=== PATIENT | female | born 1975 | race Caucasian/White ===

== ENCOUNTER 2018-10-24 15:42 | Emergency (ER) | payer OTHER ==
[~2018-10-24] VITALS: Ht 157.5 cm; Wt 81.6 kg
--- NOTE | 2018-10-24 15:42 | NUR ---
EDWNI FROM HOME C/O LOWER BACK PAIN, PT HAS LUMBAR SURGERY YESTERDAY, TO ER BED 2, HOOKED TO MONITOR, CHANGED TO GOWN, PROVIDED W WARM BLANKET, DAUGHTER AT BEDSIDE, AWAITING MD URBAN
--- NOTE | 2018-10-24 16:13 | NUR ---
CALLED DR DECKER' OFFICE AT [phone] AND LEFT A MESSAGE FOR HIM TO CALL US BACK Addendum: 10/24/18 at 1703 by MAMI [phone] IS THE CORRECT OFFICE NUMBER
--- NOTE | 2018-10-24 16:15 | NUR ---
DR LOZOYA AT BEDSIDE FOR EVAL.
[2018-10-24] MEDS ORDERED: HYDROMORPHONE INJ 0.5 MG/0.5 ML SYRINGE IV ONE ×3 (16:30→21:30)
[2018-10-24] MEDS ORDERED: ONDANSETRON HCL/PF - ER 4 MG/2 ML VIAL IV ONE (16:30)
[2018-10-24] MEDS ORDERED: ONDANSETRON HCL/PF 4 MG/2 ML VIAL ONE (16:44)
[2018-10-24] MEDS ORDERED: HYDROMORPHONE 1 MG/1 ML DISP.SYRIN ONE ×3 (16:45→21:18)
[2018-10-24 16:47] LABS: BASOPHILS # (AUTO) 0.1 /CMM (0.0-0.2); BASOPHILS % (AUTO) 0.6 % (0.0-2.0); EOSINOPHILS % (AUTO) 2.2 % (0.0-6.0); HEMATOCRIT 34 % (33-45); HEMOGLOBIN 11.5 g/dL (11.5-14.8); LYMPHOCYTES % (AUTO) 15.7 % (20.0-44.0); MEAN CORPUSCULAR HGB CONC 34 g/dl (31.0-36.0); MEAN CORPUSCULAR VOLUME 94 fL (82-100); MONOCYTES # (AUTO) 1.1 /CMM (0.1-1.30); MONOCYTES % (AUTO) 8.3 % (2.0-12.0); NEUTROPHILS # (AUTO) 9.4 /CMM (1.8-8.9); NEUTROPHILS % (AUTO) 73.2 % (43.0-81.0); PLATELET COUNT (AUTO) 245 /CMM (150-450); RED BLOOD CELL COUNT(AUTO) 3.61 MIL/uL (4.0-5.2); WHITE BLOOD COUNT (AUTO) 12.8 K/uL (4.3-11.0)
[2018-10-24 16:52] LABS: CALCIUM, SERUM 8.4 mg/dL (8.5-10.1); CREATININE 0.8 mg/dL (0.6-1.3)
--- NOTE | 2018-10-24 17:02 | NUR ---
CALLED DR DECKER'S OFFICE AND LEFT ANOTHER MESSAGE. AWAITING HIS CALL
--- NOTE | 2018-10-24 17:32 | NUR ---
CALLED DR DECKER'S OFFICE IN [facility]
--- NOTE | 2018-10-24 18:16 | NUR ---
CALLED DR DECKER'S OFFICE AND LEFT A MESSAGE. AWAITING HIS CALL BACK
--- NOTE | 2018-10-24 18:16 | NUR ---
CALLED DR DECKER'S OFFICE IN [facility]
--- NOTE | 2018-10-24 18:35 | NUR ---
[facility] CALLED,SPOKE WITH [phone], WANTS FACESHEET AND CLINICALS FAXED TO [phone],DR Shalom ARREOLAUHOPRK-[phone]
--- NOTE | 2018-10-24 19:22 | NUR ---
ASSUMED CARE. PT RESTING COMFORTABLY NO ACUTE DISTRESS NOTED, RESP EVEN AND UNLABORED. PAIN WITHIN ACCEPTABLE LEVEL TO PT AT THIS TIME 3/10 LOW BACK PAIN. PT DAUGHTER AT BEDSIDE. CALL LIGHT WITHIN REACH. WILL CONTINUE TO MONITOR PT CLOSELY.
--- NOTE | 2018-10-24 19:39 | NUR ---
NOW PT C/O LOW BACK PAIN 01/05. ER MADE AWARE.
--- NOTE | 2018-10-24 19:40 | NUR ---
REPORT GIVEN TO ED RN FOR GLORY
--- NOTE | 2018-10-24 20:47 | NUR ---
PER TIP PRINTER, [facility] SURG ROOM [address] DR[address] WOODY. RN [facility] [phone]
--- NOTE | 2018-10-24 21:06 | NUR ---
FEMALE RN AT BEDSIDE FOR F/C INSERTION.
--- NOTE | 2018-10-24 21:17 | NUR ---
[facility] ETA [id number] TRIP [id number]
--- NOTE | 2018-10-24 21:25 | NUR ---
REPORT CALLED TO [facility] NATHAN SOOD. AWAITING TRANSPORT.
--- NOTE | 2018-10-24 22:03 | NUR ---
PT RESTING QUIETLY, NO ACUTE DISTRESS NOTED, RESP EVEN AND UNLABORED. CALL LIGHT WITHIN REACH. PT DAUGHTER REMAINS AT BEDSIDE. AWAITING TRANSPORT.
--- NOTE | 2018-10-24 22:20 | NUR ---
TRANSPORT AT BEDSIDE REPORT GIVEN TO [facility] TRANSPORT.
[2018-10-24 22:46] VITALS: BP 92/59
== END 2018-10-24 23:04 | disposition short-term general hospital (02) ==
LOC: ER 15:46
DX: M54.5 Low back pain (principal); Z90.710 Acquired absence of both cervix and uterus; Z98.890 Other specified postprocedural states; Z88.0 Allergy status to penicillin; Z88.1 Allergy status to other antibiotic agents
CPT/HCPCS: 36415; 51702; 80048; 85025; 85610; 85730; 96374; 96375; 96376; 99285; J1170 ×3; J2405